=== PATIENT | female | born 1990 | race Caucasian/White ===

== ENCOUNTER 2021-08-30 11:34 | Emergency (ER) | payer BC, SELFPAY ==
[2021-08-30 11:57] VITALS: BP 167/83; PULSE 65; RESP 18; TEMP 37; O2SAT 100; BMI 25.6
== END 2021-08-30 15:30 | disposition left against medical advice (07) ==
LOC: HO.ED 15:24
PROVIDERS: Emergency Provider Emergency Medicine
DX: R11.10 Vomiting, unspecified (principal); R10.9 Unspecified abdominal pain
CPT/HCPCS: 99281; 99282

== ENCOUNTER 2021-08-31 08:26 | Inpatient (IN) | payer BC, SELFPAY ==
--- NOTE | ~2021-08-31 | CT_ITS ---
EXAMINATION: CT ABDOMEN AND PELVIS WITH CONTRAST CLINICAL INFORMATION: Abdominal pain. Hematemesis. COMPARISON: None TECHNIQUE: Multidetector volumetric images were obtained from the superior aspect of the liver through the pubic symphysis following administration 85 mL of Omnipaque 350 intravenous contrast. Sagittal and coronal reformatted images were obtained on the technologist's workstation. Oral contrast: Yes This CT examination was performed using dose optimization techniques as appropriate, variously including the following: *Automated exposure control *Adjustment of mA and/or kV according to patient size (this includes techniques or standardized protocols for targeted exams where dose is matched to indication/reason for exam; i.e. extremities or head) *Use of iterative reconstruction technique DLP: 368 mGy-cm FINDINGS: LUNG BASES: The visualized lung bases are unremarkable. LIVER, GALLBLADDER, AND BILIARY TREE: The liver is normal in size, shape, and attenuation. No focal hepatic lesion or biliary ductal dilatation is present. The gallbladder is unremarkable with no evidence of radiopaque gallstones, gallbladder wall thickening, or obvious pericholecystic inflammatory changes. PANCREAS: Unremarkable. SPLEEN: Unremarkable. ADRENAL GLANDS: Unremarkable. KIDNEYS AND URETERS: The kidneys are normal in size, shape, and attenuation. No hydronephrosis, hydroureter, or calculi seen. No perinephric stranding. BLADDER: Unremarkable. GASTROINTESTINAL TRACT: The small and large bowel are unremarkable. The appendix is unremarkable. ABDOMINAL WALL: No significant hernia is appreciated. LYMPH NODES: Normal. VASCULAR: Unremarkable. PELVIC VISCERA: Unremarkable. OSSEOUS STRUCTURES: Unremarkable. CT/CT abdomen pelvis w con IMPRESSION: Unremarkable exam. Fleischner guidelines were followed.
[2021-08-31 08:31] VITALS: BP 137/87; PULSE 84; RESP 16; TEMP 36.6; O2SAT 99; BMI 25.6
--- NOTE | 2021-08-31 09:10 | ED_ITS ---
HPI - Nausea/Vomiting/Diarrhea General Chief complaint: Nausea/Vomiting/Diarrhea Stated complaint: vomiting blood Time Seen by Provider: 08/31/21 08:42 Source: patient Mode of arrival: ambulatory Limitations: no limitations History of Present Illness HPI Narrative: Patient presents emergency department for evaluation of vomiting. She reports 1 week ago she had vomited approximately 6 times in 1 day, was unable to tolerate p.o. Since then she has been experiencing diarrhea each day, is unable to state exactly how many times she is having diarrhea. Denies any blood or mucus to be present in it. Yesterday she began vomiting again and noted some bright red blood. She has been unable to tolerate any p.o. intake reportedly for the last 24 hours. Is experiencing abdominal pain mostly localized to the umbilical region. She denies any NSAID usage, history of ulcers, consistent alcohol consumption. She does report a history of GERD, has had many endoscopies in the past but states it has been a few years since her prior ones. Not currently taking any medication for her GERD. Denies fevers, chills, known sick contacts, upper respiratory symptoms, chest pain, palpitations, shortness of breath, difficulty breathing, dysuria, urinary frequency/ urgency / hesitancy, abnormal vaginal discharge, pelvic pain, possibility of . Related Data Home Medications Medication Instructions Recorded Confirmed albuterol sulfate 90 mcg/actuation 2 puff INHALATION Q4H PRN 08/31/21 08/31/21 aerosol inhaler atorvastatin 40 mg tablet 1 tab PO DAILY 08/31/21 08/31/21 bupropion HCl 150 mg 24 hr tablet, 1 tab PO QAM 08/31/21 08/31/21 extended release etonogestrel 0.12 mg-ethinyl 1 ring VAGINAL QMONTH 08/31/21 08/31/21 estradiol 0.015 mg/24 hr vaginal ring lamotrigine 150 mg tablet 1 tab PO DAILY 08/31/21 08/31/21 lorazepam 1 mg tablet 1 tab PO DAILY PRN 08/31/21 08/31/21 Allergies Allergy/AdvReac Type Severity Reaction Status Date / Time nausea med AdvReac Unknown Uncoded 08/30/21 12:03 Review of Systems Review of Systems: Constitutional : No Weight loss, No Fever, No Chills ENT/Mouth :? No sore throat, No Rhinorrhea Eyes: No Swelling, No Redness Cardiovascular : No Chest Pain, No SOB, No Edema Respiratory : No Cough, No Sputum, No Wheezing Gastrointestinal : Positive Nausea, Positive Vomiting, positive Diarrhea, positive abdominal pain. Positive hematemesis. No Hematochezia, No Melena Genitourinary : No Dysuria, No Urinary Frequency, No Hematuria, No Urgency? Musculoskeletal : No joint pain, No Myalgias, No Joint Swelling Skin : No Skin Lesions, No rash Neuro : No Weakness, No Numbness, No Dizziness, No Headache Psych : No Anxiety/Panic, No Depression Heme/Lymph: No Bruising, No Lymphadenopathy Endocrine : No Polyuria, No Polydipsia Yes all other systems are reviewed and are negative [facility] Past Medical History Attestation statement: The following information was validated with the patient. Source: old records reviewed Medical History ADHD Anxiety Surgical History H/O wisdom tooth extraction Social History Social History Smoked in Last 30 Days: No Use of substances other than those prescribed or required for medical reasons: Yes Substance Use Type: Marijuana Advance Directives: No Advance Directives Information Provided: No Physical Exam Vital Signs: Vital Signs: Last Vital Signs Temp 98.3 F 08/31/21 16:59 Pulse 84 08/31/21 18:17 Resp 16 08/31/21 18:17 BP 106/68 08/31/21 18:17 Pulse Ox 99 08/31/21 18:17 BMI result Body Mass Index 25.6 Vital signs have been reviewed as normal and appeared to be correct. Blood pressure normal.? Heart rate normal.? Respiration rate normal. Temperature normal.? Oxygen saturation normal. Appearance: Alert.?Oriented to person, place and time. No acute distress.?Normal affect. Eyes: Pupils equal, round and reactive to light.? ENT: Pharynx normal.?? Neck: Normal inspection.? Neck supple.?? CVS: Heart sounds normal. Normal heart rate and rhythm.? Pulses normal.?? Respiratory: No respiratory distress.? Lung sounds clear to auscultation bilaterally?? Abdomen: Soft and non-tender throughout. Normoactive bowel sounds. No pulsatile mass.? negative rebound tenderness, negative psoas, negative obturator, negative Rovsing Skin: Skin warm and dry.? Normal skin color. Extremities: No lower extremity edema.? Neuro: Moves all extremities spontaneously. Sensation intact bilaterally. CN II- XII intact. No focal neuro deficits. Ambulates with normal steady gait. Course Course Course Narrative: patient is a 31-year-old female with a past medical history of GERD presenting to the emergency department for evaluation of vomiting, she is concerned due to the presence of bright red blood. During my exam she had an episode of a small amount of emesis notable presence of bright red blood, and dark red. abdominal exam is benign. She is well appearing, hemodynamically stable. Will obtain CBC, CMP/lipase, urinalysis, urine , and CT of the abdomen/ pelvis. patient received 1 L IV fluid, Toradol for abdominal pain, Zofran 4 mg IV. She reports a allergy to a nausea medicine is unaware which medication but states she is able to take Zofran. Reevaluation(s) Reevaluation #1: Patient continues to have active vomiting, ordered Benadryl 25 mg IV. Time: 09:50 Reevaluation #2: COVID- 19 and influenza testing is negative. CBC reveals a mild leukocytosis 13.8, CMP unremarkable. Lipase is mildly elevated 107. urinalysis is without sign of infection or hematuria. CT pending at this time Time: 10:41 Reevaluation #3: CT of the abdomen and pelvis without any acute findings. Remains actively vomiting, no p.o. tolerance, will give benadryl and phenergan Time: 14:25 Additional Reevaluation(s): 1630: unable to tolerate p.o. fluid or solid foods, emesis sent for occult testing. will trial Haldol, as patient does smoke marijuana, this may be for emesis secondary to cannabis, call placed to hospitalist Dr. Childs for admission to medicine service with intractable vomiting, discussed this with patient, and patient agreeable to plan of care for hospital admission. 1730: Gastric emesis occult positive MDM - Nausea/Vomiting/Diarrhea Medical Records Attestation: I reviewed the patient's medical records. Lab Data Attestation: I reviewed the patient's lab results. Result diagrams: 08/31/21 09:22 08/31/21 09:22 Labs: Lab Results 08/31/21 08/31/21 08/31/21 Range/Units 09:17 09:17 09:22 WBC 13.8 H (4.8-10.8) X10*3/uL RBC 4.65 (4.20-5.50) X10*6/uL Hgb 14.5 (12.0-16.0) g/dl Hct 40.6 (37.0-47.0) % MCV 87.3 (80.0-98.0) fL MCH 31.2 (27.0-33.0) pg MCHC 35.7 H (31.0-35.0) g/dl RDW 13.2 (11.0-16.0) % Plt Count 341 (160-400) X10*3/uL MPV 8.8 L (9.4-12.3) fL Immature Gran % (Auto) 0.4 (0.0-0.4) % Neut % (Auto) 70.7 (45-73) % Lymph % (Auto) 20.5 (20-40) % [place] % (Auto) 7.6 (2-11) % Eos % (Auto) 0.6 (0-4) % Baso % (Auto) 0.2 (0-2) % Lymph # (Auto) 2.8 (1.2-4.9) X10*3/uL [place] # (Auto) 1.1 (0.1-1.2) X10*3/uL Eos # (Auto) 0.1 (0.0-0.4) X10*3/uL Baso # (Auto) 0.0 (0.0-0.2) X10*3/uL Abs Immat Gran (auto) 0.05 H (0.00-0.03) X10*3/uL Absolute Neuts (auto) 9.8 H (2.0-8.3) x10*3/uL Absolute Nucleated RBC 0.000 (0.0-0.012) X10*3/uL Nucleated RBC % (auto) 0.0 (0.0-0.2) /100WBC Sodium (135-145) mmol/L Potassium (3.3-5.1) mmol/L Chloride (96-108) mmol/L Carbon Dioxide (22-29) mmol/L Anion Gap (12-20) BUN (9-16) mg/dL Creatinine (0.5-1.4) mg/dL Estim Creat Clear Calc Estimated GFR Random Glucose (60-115) mg/dL Calcium (8.4-10.2) mg/dL Total Bilirubin (0.0-1.0) mg/dL AST (5-31) U/L ALT (0-31) U/L Alkaline Phosphatase (39-117) U/L Total Protein (6.5-8.0) g/dL Albumin (3.5-5.0) g/dL Lipase (8-78) U/L Beta HCG, Quant mIU/mL Urine Color Urine Appearance Urine pH (5.0-8.0) Ur Specific [place] (1.005-1.025) Urine Protein (NEG-TRACE) MG/DL Urine Glucose (UA) (NEG) MG/DL Urine Ketones (NEG) MG/DL Urine Blood (NEG) Urine Nitrite (NEG) Ur Leukocyte Esterase (NEG) Urine RBC (0) /HPF Urine WBC (0-4) /HPF Ur Squamous Epith Cells /LPF Urine Bacteria /LPF Urine Mucus /LPF Urine Test (NEGATIVE) Gastric Occult Blood (NEG) COVID-19 (ROSCOE) Negative (Negative) COVID-19 Clin Com See Note Influenza Type A (CAROLIN) Negative (Negative) Influenza Type B (CAROLIN) Negative (Negative) Influenza A & B Note See Note 08/31/21 08/31/21 08/31/21 Range/Units 09:22 11:21 11:21 WBC (4.8-10.8) X10*3/uL RBC (4.20-5.50) X10*6/uL Hgb (12.0-16.0) g/dl Hct (37.0-47.0) % MCV (80.0-98.0) fL MCH (27.0-33.0) pg MCHC (31.0-35.0) g/dl RDW (11.0-16.0) % Plt Count (160-400) X10*3/uL MPV (9.4-12.3) fL Immature Gran % (Auto) (0.0-0.4) % Neut % (Auto) (45-73) % Lymph % (Auto) (20-40) % [place] % (Auto) (2-11) % Eos % (Auto) (0-4) % Baso % (Auto) (0-2) % Lymph # (Auto) (1.2-4.9) X10*3/uL [place] # (Auto) (0.1-1.2) X10*3/uL Eos # (Auto) (0.0-0.4) X10*3/uL Baso # (Auto) (0.0-0.2) X10*3/uL Abs Immat Gran (auto) (0.00-0.03) X10*3/uL Absolute Neuts (auto) (2.0-8.3) x10*3/uL Absolute Nucleated RBC (0.0-0.012) X10*3/uL Nucleated RBC % (auto) (0.0-0.2) /100WBC Sodium 136 (135-145) mmol/L Potassium 4.2 (3.3-5.1) mmol/L Chloride 106 (96-108) mmol/L Carbon Dioxide 19 L (22-29) mmol/L Anion Gap 15 (12-20) BUN 14 (9-16) mg/dL Creatinine 0.76 (0.5-1.4) mg/dL Estim Creat Clear Calc 93.8 Estimated GFR > 60 Random Glucose 114 (60-115) mg/dL Calcium 9.8 (8.4-10.2) mg/dL Total Bilirubin 0.7 (0.0-1.0) mg/dL AST 25 (5-31) U/L ALT 24 (0-31) U/L Alkaline Phosphatase 74 (39-117) U/L Total Protein 7.7 (6.5-8.0) g/dL Albumin 4.4 (3.5-5.0) g/dL Lipase 107 H (8-78) U/L Beta HCG, Quant < 2 mIU/mL Urine Color YELLOW Urine Appearance HAZY Urine pH 6.0 (5.0-8.0) Ur Specific [place] 1.025 (1.005-1.025) Urine Protein 1+ H (NEG-TRACE) MG/DL Urine Glucose (UA) NEG (NEG) MG/DL Urine Ketones 15 (NEG) MG/DL Urine Blood TRACE (NEG) Urine Nitrite NEG (NEG) Ur Leukocyte Esterase NEG (NEG) Urine RBC 1-4 (0) /HPF Urine WBC 1-4 (0-4) /HPF Ur Squamous Epith Cells 2+ /LPF Urine Bacteria 1+ /LPF Urine Mucus 3+ /LPF Urine Test NEGATIVE (NEGATIVE) Gastric Occult Blood (NEG) COVID-19 (ROSCOE) (Negative) COVID-19 Clin Com Influenza Type A (CAROLIN) (Negative) Influenza Type B (CAROLIN) (Negative) Influenza A & B Note 08/31/21 Range/Units 17:02 WBC (4.8-10.8) X10*3/uL RBC (4.20-5.50) X10*6/uL Hgb (12.0-16.0) g/dl Hct (37.0-47.0) % MCV (80.0-98.0) fL MCH (27.0-33.0) pg MCHC (31.0-35.0) g/dl RDW (11.0-16.0) % Plt Count (160-400) X10*3/uL MPV (9.4-12.3) fL Immature Gran % (Auto) (0.0-0.4) % Neut % (Auto) (45-73) % Lymph % (Auto) (20-40) % [place] % (Auto) (2-11) % Eos % (Auto) (0-4) % Baso % (Auto) (0-2) % Lymph # (Auto) (1.2-4.9) X10*3/uL [place] # (Auto) (0.1-1.2) X10*3/uL Eos # (Auto) (0.0-0.4) X10*3/uL Baso # (Auto) (0.0-0.2) X10*3/uL Abs Immat Gran (auto) (0.00-0.03) X10*3/uL Absolute Neuts (auto) (2.0-8.3) x10*3/uL Absolute Nucleated RBC (0.0-0.012) X10*3/uL Nucleated RBC % (auto) (0.0-0.2) /100WBC Sodium (135-145) mmol/L Potassium (3.3-5.1) mmol/L Chloride (96-108) mmol/L Carbon Dioxide (22-29) mmol/L Anion Gap (12-20) BUN (9-16) mg/dL Creatinine (0.5-1.4) mg/dL Estim Creat Clear Calc Estimated GFR Random Glucose (60-115) mg/dL Calcium (8.4-10.2) mg/dL Total Bilirubin (0.0-1.0) mg/dL AST (5-31) U/L ALT (0-31) U/L Alkaline Phosphatase (39-117) U/L Total Protein (6.5-8.0) g/dL Albumin (3.5-5.0) g/dL Lipase (8-78) U/L Beta HCG, Quant mIU/mL Urine Color Urine Appearance Urine pH (5.0-8.0) Ur Specific [place] (1.005-1.025) Urine Protein (NEG-TRACE) MG/DL Urine Glucose (UA) (NEG) MG/DL Urine Ketones (NEG) MG/DL Urine Blood (NEG) Urine Nitrite (NEG) Ur Leukocyte Esterase (NEG) Urine RBC (0) /HPF Urine WBC (0-4) /HPF Ur Squamous Epith Cells /LPF Urine Bacteria /LPF Urine Mucus /LPF Urine Test (NEGATIVE) Gastric Occult Blood POSITIVE H (NEG) COVID-19 (ROSCOE) (Negative) COVID-19 Clin Com Influenza Type A (CAROLIN) (Negative) Influenza Type B (CAROLIN) (Negative) Influenza A & B Note Discharge Plan Discharge Clinical Impression: Intractable vomiting Patient Disposition: Admitted As Inpatient
[2021-08-31] MEDS: 0.9 % Sodium Chloride 1,000 ML 999 ML IV ×2 (09:25→16:56)
[2021-08-31] MEDS: Ketorolac Tromethamine 30 MG/ML VIAL IVPUSH (09:26)
[2021-08-31] MEDS: ondansetron HCL 4 MG/2 ML VIAL IVPUSH (09:26)
[2021-08-31 09:32] LABS: MANUAL DIFF FLAG NO
[2021-08-31 09:35] LABS: Basophils Percent Auto 0.2 % (0-2); Eosinophils Absolute Auto 0.1 X10*3/uL (0.0-0.4); Eosinophils Percent Auto 0.6 % (0-4); Hematocrit 40.6 % (37.0-47.0); Hemoglobin 14.5 g/dl (12.0-16.0); Imm Gran Abs Auto 0.05 X10*3/uL (0.00-0.03); Imm Gran Pct Auto 0.4 % (0.0-0.4); Lymphocytes Absolute Auto 2.8 X10*3/uL (1.2-4.9); Lymphocytes Percent Auto 20.5 % (20-40); Mean Corpuscular HGB Conc 35.7 g/dl (31.0-35.0); Mean Corpuscular Hemoglobin 31.2 pg (27.0-33.0); Mean Corpuscular Volume 87.3 fL (80.0-98.0); Mean Platelet Volume 8.8 fL (9.4-12.3); Monocytes Absolute Auto 1.1 X10*3/uL (0.1-1.2); Monocytes Percent Auto 7.6 % (2-11); Neutrophils Absolute Auto 9.8 x10*3/uL (2.0-8.3); Neutrophils Percent Auto 70.7 % (45-73); Platelet Count 341 X10*3/uL (160-400); Red Blood Count 4.65 X10*6/uL (4.20-5.50); Red Cell Distribution Width 13.2 % (11.0-16.0); White Blood Count 13.8 X10*3/uL (4.8-10.8)
[2021-08-31 09:53] LABS: COVID-19 Test Negative (Negative); IDNOW Serial# 08D9AD1C
[2021-08-31 10:03] LABS: Alanine Aminotransferase 24 U/L (0-31); Albumin Level 4.4 g/dL (3.5-5.0); Alkaline Phosphatase 74 U/L (39-117); Anion Gap 15 (12-20); Aspartate Amino Transferase 25 U/L (5-31); Bilirubin Total 0.7 mg/dL (0.0-1.0); Blood Urea Nitrogen 14 mg/dL (9-16); Calcium 9.8 mg/dL (8.4-10.2); Carbon Dioxide 19 mmol/L (22-29); Chloride 106 mmol/L (96-108); Creatinine Clr Calc Pharmacy 93.8; Estimated Glomerular Filt Rate > 60; Glucose Random 114 mg/dL (60-115); Lipase 107 U/L (8-78); Potassium 4.2 mmol/L (3.3-5.1); Sodium 136 mmol/L (135-145); Total Protein 7.7 g/dL (6.5-8.0)
[2021-08-31] MEDS: diphenhydrAMINE HCL 50 MG/ML VIAL 25 MG IVPUSH ×2 (10:05→14:40)
[2021-08-31 10:07] LABS: Influenza A Negative (Negative); Influenza B2 Negative (Negative)
[2021-08-31 11:07] LABS: HCG Quantitative < 2 mIU/mL
[2021-08-31 11:31] LABS: Appearance Urine HAZY; Color Urine YELLOW; Glucose Urine UA NEG (NEG); Leukocyte Esterase Urine NEG (NEG); Nitrite Urine NEG (NEG); Specific Gravity - Urine 1.025 (1.005-1.025); UACC Culture Trigger NO; Urine Blood TRACE (NEG); Urine Ketones 15 MG/DL (NEG); Urine Protein 1+ MG/DL (NEG-TRACE)
[2021-08-31 11:34] LABS: UPreg QC Valid YES; Urine Pregnancy NEGATIVE (NEGATIVE)
[2021-08-31 11:39] LABS: Bacteria Urine 1+ /LPF; Mucus Urine 3+ /LPF; Squamous Epithelial Cell Urine 2+ /LPF
[2021-08-31] MEDS: iohexoL 350 MG/ML 100 ML INFUS..BTL IV (12:35)
[2021-08-31 13:53] VITALS: RESP 16
[2021-08-31 14:38] VITALS: BP 150/91; PULSE 69; RESP 20; O2SAT 99
[2021-08-31] MEDS: Haloperidol Lactate 5 MG/ML VIAL 2 MG IM (16:57)
[2021-08-31] MEDS: Pantoprazole Sodium 40 MG/10 ML VIAL IVPUSH (16:57)
[2021-08-31 16:59] VITALS: BP 145/89; PULSE 56; RESP 14; TEMP 36.8; O2SAT 100
[2021-08-31 17:19] LABS: GASOB Int Neg Ctl Valid YES; GASOB Int Pos Ctl Valid YES; Occult Blood Gastric POSITIVE (NEG)
--- NOTE | 2021-08-31 17:30 | P.HPHOSP_ITS ---
History of Present Illness Date of Service: 08/31/21 Chief Complaint: intractable nausea and vomiting 31 year female with HLD, who has chronic nonspecific abdominal issues, she smokes marijuana and is presenting with intractable nausea and vomiting for nearly a week, vomiting up to 7 times a day and hardly able to keep any food or liquid down.She has also some has some diarrhea, without abdominal pain, or bl ood in the stool, no fever. Labs shows mild increase in WBC to 13. Electrolytes are normal, lipase is high likely from n/v. CT of abdomen is normal. Negative test. Review of Systems Review of Systems: Gen: no fever Resp: no sob, no cough CV: no chest, no MATA, no leg edema GI:+ n/v, no abd pain Neuro: No confusion Yes all other systems are reviewed and are negative [facility] Medical History ADHD Anxiety Pertinent family history: she thinks diabetes Surgical History H/O wisdom tooth extraction Social History Smoked in Last 30 Days: No Use of substances other than those prescribed or required for medical reasons: Yes Substance Use Type: Marijuana Advance Directives: No Advance Directives Information Provided: No service: No Current occupational status: employed Meds Allergies Allergy/AdvReac Type Severity Reaction Status Date / Time nausea med AdvReac Unknown Uncoded 08/30/21 12:03 Active Medications: Current Medications Sodium Chloride (Ns) 1,000 mls @ 999 mls/hr IV .Q1H1M LOLI Stop: 08/31/21 17:45 Last Admin: 08/31/21 16:56 Dose: 999 mls/hr Documented by: Pharmacy Consult (Consult Rx Perform Med Rec) 1 each MISCELLANE ONCE PRN PRN Reason: Consult order Home Medications Medication Instructions Recorded Confirmed Last Taken Type albuterol sulfate 90 mcg/actuation 2 puff INHALATION Q4H PRN 08/31/21 08/31/21 Unknown History aerosol inhaler atorvastatin 40 mg tablet 1 tab PO DAILY 08/31/21 08/31/21 08/27/21 History bupropion HCl 150 mg 24 hr tablet, 1 tab PO QAM 08/31/21 08/31/21 08/27/21 History extended release etonogestrel 0.12 mg-ethinyl 1 ring VAGINAL QMONTH 08/31/21 08/31/21 08/21/21 History estradiol 0.015 mg/24 hr vaginal ring lamotrigine 150 mg tablet 1 tab PO DAILY 08/31/21 08/31/21 08/27/21 History lorazepam 1 mg tablet 1 tab PO DAILY PRN 08/31/21 08/31/21 Unknown History Physical Exam Vital Signs and Narrative: Vital Signs: Last Vital Signs Temp 98.3 F 08/31/21 16:59 Pulse 56 08/31/21 16:59 Resp 14 08/31/21 16:59 BP 145/89 H 08/31/21 16:59 Pulse Ox 100 08/31/21 16:59 BMI result Body Mass Index 25.6 Const: Other: Constitutional: Alert, in no distress Mental Status: Oriented to person, place and time. Eyes: Pupils are equal, round and reactive to light. Ear, Nose and Throat: Oropharynx clear, mucous membranes moist. Respiratory: Clear to auscultation. No wheezing, rales or rhonchi. Cardiovascular: S1 S2 regular. No murmurs, rubs or gallops. Gastrointestinal: Abdomen soft, non-tender, non-distended. Normal bowel sounds.? Neurologic: Cranial nerves II-XII grossly intact. No focal neurological deficits. Moves all extremities spontaneously.? Skin: No rashes or lesions.? Musculoskeletal: No cyanosis or clubbing. Psychiatric: Normal mood and affect? Results Labs CBC and Chem 7: 09/01/21 10:02 08/31/21 09:22 Labs: Laboratory Results - last 24 hr 08/31/21 08/31/21 08/31/21 09:17 09:17 09:22 MCV 87.3 MCH 31.2 MCHC 35.7 H RDW 13.2 Plt Count 341 MPV 8.8 L Immature Gran % (Auto) 0.4 Neut % (Auto) 70.7 Lymph % (Auto) 20.5 [place] % (Auto) 7.6 Eos % (Auto) 0.6 Baso % (Auto) 0.2 Lymph # (Auto) 2.8 [place] # (Auto) 1.1 Eos # (Auto) 0.1 Baso # (Auto) 0.0 Abs Immat Gran (auto) 0.05 H Absolute Neuts (auto) 9.8 H Absolute Nucleated RBC 0.000 Nucleated RBC % (auto) 0.0 Anion Gap Estim Creat Clear Calc Estimated GFR Random Glucose Calcium Total Bilirubin AST ALT Alkaline Phosphatase Total Protein Albumin Lipase Beta HCG, Quant Urine Color Urine Appearance Urine pH Ur Specific [place] Urine Protein Urine Glucose (UA) Urine Ketones Urine Blood Urine Nitrite Ur Leukocyte Esterase Urine RBC Urine WBC Ur Squamous Epith Cells Urine Bacteria Urine Mucus Urine Test Gastric Occult Blood COVID-19 ([facility]COE) Negative COVID-19 Clin Com See Note Influenza Type A (CAROLIN) Negative Influenza Type B (CAROLIN) Negative Influenza A & B Note See Note 08/31/21 08/31/21 08/31/21 09:22 11:21 11:21 MCV MCH MCHC RDW Plt Count MPV Immature Gran % (Auto) Neut % (Auto) Lymph % (Auto) [place] % (Auto) Eos % (Auto) Baso % (Auto) Lymph # (Auto) [place] # (Auto) Eos # (Auto) Baso # (Auto) Abs Immat Gran (auto) Absolute Neuts (auto) Absolute Nucleated RBC Nucleated RBC % (auto) Anion Gap 15 Estim Creat Clear Calc 93.8 Estimated GFR > 60 Random Glucose 114 Calcium 9.8 Total Bilirubin 0.7 AST 25 ALT 24 Alkaline Phosphatase 74 Total Protein 7.7 Albumin 4.4 Lipase 107 H Beta HCG, Quant < 2 Urine Color YELLOW Urine Appearance HAZY Urine pH 6.0 Ur Specific [place] 1.025 Urine Protein 1+ H Urine Glucose (UA) NEG Urine Ketones 15 Urine Blood TRACE Urine Nitrite NEG Ur Leukocyte Esterase NEG Urine RBC 1-4 Urine WBC 1-4 Ur Squamous Epith Cells 2+ Urine Bacteria 1+ Urine Mucus 3+ Urine Test NEGATIVE Gastric Occult Blood COVID-19 (ROSCOE) COVID-19 Clin Com Influenza Type A (CAROLIN) Influenza Type B (CAROLIN) Influenza A & B Note 08/31/21 17:02 MCV MCH MCHC RDW Plt Count MPV Immature Gran % (Auto) Neut % (Auto) Lymph % (Auto) [place] % (Auto) Eos % (Auto) Baso % (Auto) Lymph # (Auto) [place] # (Auto) Eos # (Auto) Baso # (Auto) Abs Immat Gran (auto) Absolute Neuts (auto) Absolute Nucleated RBC Nucleated RBC % (auto) Anion Gap Estim Creat Clear Calc Estimated GFR Random Glucose Calcium Total Bilirubin AST ALT Alkaline Phosphatase Total Protein Albumin Lipase Beta HCG, Quant Urine Color Urine Appearance Urine pH Ur Specific [place] Urine Protein Urine Glucose (UA) Urine Ketones Urine Blood Urine Nitrite Ur Leukocyte Esterase Urine RBC Urine WBC Ur Squamous Epith Cells Urine Bacteria Urine Mucus Urine Test Gastric Occult Blood POSITIVE H COVID-19 (ROSCOE) COVID-19 Clin Com Influenza Type A (CAROLIN) Influenza Type B (CAROLIN) Influenza A & B Note Imaging Radiologist's Impressions: Impressions Abdomen/Pelvis CT 08/31/21 12:35 IMPRESSION: Unremarkable exam. Fleischner guidelines were followed. 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 Quality Stroke Does the patient have a stroke diagnosis?: No VTE Prior VTE?: No VTE Risk Level:: Medical - low VTE Device Contraindication: Treatment Not Indicated VTE Drug Contraindication: Treatment Not Indicated
--- NOTE | 2021-08-31 17:35 | PHA.MEDREC ---
Pharmacy Consult ? Medication Reconciliation Pharmacy has completed the medication reconciliation.
[2021-08-31] MEDS: Dextrose 5 % and 0.45 % NaCl 1,000 ML 100 ML IVCONT (18:15)
[2021-08-31 18:17] VITALS: BP 106/68; PULSE 84; RESP 16; O2SAT 99
--- NOTE | 2021-08-31 20:24 | PC.NURSE ---
pt ambulated to BR independently, no /o dizziness
--- NOTE | 2021-08-31 20:57 | PC.NURSE ---
pt given cherie jakob and saltines
--- NOTE | 2021-08-31 21:10 | MHC.CM.PN ---
MAGNO 08/31. Declines HCP. PCP at [facility], cannot remember name. Vax x2/Moderna. Lives with S.O. No DME/services. D/C plan: Home without services. Pt states will drive herself home. CM to follow for d/c needs.
[2021-09-01 00:02] VITALS: BP 102/64; PULSE 54; RESP 19; O2SAT 98
--- NOTE | 2021-09-01 02:19 | PC.NURSE ---
pt asking to go home, states she feels better, able to hold down PO fluids and saltines and wants to go. MD Royal made aware. pt c/o of pain at IV site. noted to be infiltrated, IV d/c'd
--- NOTE | 2021-09-01 02:23 | PC.NURSE ---
MD requested this RN to ask pt to stay until morning, pt reassured, told that the MD would like to observe until am... pt agreeable to stay until she is deemed safe for discharge
--- NOTE | 2021-09-01 03:04 | PC.NURSE ---
pt ambulated to BR to void independently. no c.o dizziness
[2021-09-01 03:54] VITALS: BP 101/58; PULSE 55; RESP 19; O2SAT 98
[2021-09-01] MEDS: Dextrose 5 % and 0.45 % NaCl 1,000 ML 100 ML IVCONT ×3 (06:01→19:02)
--- NOTE | 2021-09-01 07:35 | PC.NURSE ---
Pt requesting food, tolerated a small amount however now feeling nauseous, no vomiting at this time. Skin pink war and dry. D5 1/2 NS infusing per order. Ambulatory with steady gait. Speech clear, full sentences. NSR on montior
[2021-09-01] MEDS: ondansetron HCL 4 MG/2 ML VIAL IVPUSH (07:42)
[2021-09-01] MEDS: Famotidine/PF 20 MG/2 ML VIAL IVPUSH ×2 (08:24→19:53)
[2021-09-01] MEDS: LORazepam 2 MG/ML VIAL 0.5 MG IVPUSH (08:31)
--- NOTE | 2021-09-01 08:31 | PC.NURSE ---
Pt given PRN zofran but continues to vomit, no blood noted. Pt seen by hospitalist and meds ordered and being given at this time.
--- NOTE | 2021-09-01 09:49 | PC.NURSE ---
Pt improved s/p medication interventions but occasional dry heaving. Will hold off on PO AM meds at this time, pt states taking AM meds on Sunday it what initiated vomiting.
[2021-09-01 10:28] LABS: Hematocrit 38.1 % (37.0-47.0); Hemoglobin 13.6 g/dl (12.0-16.0); Mean Corpuscular HGB Conc 35.7 g/dl (31.0-35.0); Mean Corpuscular Hemoglobin 31.7 pg (27.0-33.0); Mean Corpuscular Volume 88.8 fL (80.0-98.0); Mean Platelet Volume 8.9 fL (9.4-12.3); Platelet Count 285 X10*3/uL (160-400); Red Blood Count 4.29 X10*6/uL (4.20-5.50); Red Cell Distribution Width 13.1 % (11.0-16.0); White Blood Count 10.8 X10*3/uL (4.8-10.8)
--- NOTE | 2021-09-01 11:22 | P.PNIM_ITS ---
Subjective Subjective Date of Service: 09/01/21 Interval History: follow-up on intractable nausea vomiting. She did well overnight but then this morning she ate egg and started having nausea and throwing up yet again. Review of Systems Nausea vomiting, no abdominal pain. Physical Exam Vital Signs: Vital Signs: Last Vital Signs Temp 98.3 F 08/31/21 16:59 Pulse 55 09/01/21 03:54 Resp 19 09/01/21 03:54 BP 101/58 L 09/01/21 03:54 Pulse Ox 98 09/01/21 03:54 BMI result Body Mass Index 25.6 Const: Other: General: AO X 3, no acute distress Resp: CTA bilateral CVS: S1,S2,RRR GI: +BS, NT, no distention Skin: No rash Neuro: motor grossly intact Psych: appropriate affect Objective Data Active Medications Acetaminophen (Acetaminophen 325 Mg Tablet) 650 mg PO Q6H PRN PRN Reason: Pain, Mild (Pain Scale 1-3) Albuterol Sulfate (Albuterol Sulfate 90 Mcg 8 Gm Inhaler) 2 puff INHALE Q4H PRN PRN Reason: wheezing Atorvastatin Calcium (Atorvastatin Calcium 40 Mg Tablet) 40 mg PO DAILY [facility] Bupropion HCl (Bupropion Hcl Xl 150 Mg Tab.Er.24h) 150 mg PO DAILY [facility] Famotidine (Famotidine/Pf 20 Mg/2 Ml Vial) 20 mg IVPUSH BID [facility] Last Admin: 09/01/21 08:24 Dose: 20 mg Documented by: PHUONG Dextrose/Sodium Chloride (D51/2ns) 1,000 mls @ 100 mls/hr IVCONT .Q10H [facility] Last Admin: 09/01/21 06:01 Dose: 100 mls/hr Documented by: BHARTI Lamotrigine (Lamotrigine 100 Mg Tablet) 150 mg PO DAILY [facility] Lorazepam (Lorazepam 1 Mg Tablet) 1 mg PO DAILY PRN PRN Reason: Anxiety Melatonin (Melatonin 3 Mg Tablet) 6 mg PO BEDTIME PRN PRN Reason: Insomnia Ondansetron HCl (Ondansetron Hcl 4 Mg/2 Ml Vial) 4 mg IVPUSH Q8H PRN PRN Reason: Nausea and Vomiting Last Admin: 09/01/21 07:42 Dose: 4 mg Documented by: PHUONG Pharmacy Consult (Consult Rx Perform Med Rec) 1 each MISCELLANE ONCE PRN PRN Reason: Consult order Sodium Chloride (0.9 % Sodium Chloride Flush 3 Ml Syringe) 3 ml IVFLUSH QSHIFT [facility] Last Admin: 09/01/21 07:35 Dose: Not Given Documented by: PHUONG Non-Admin Reason: IV Running Labs CBC & Chem 7: 09/01/21 10:02 08/31/21 09:22 Labs: Laboratory Results - last 24 hr 08/31/21 08/31/21 08/31/21 11:21 11:21 17:02 MCV MCH MCHC RDW Plt Count MPV Absolute Nucleated RBC Nucleated RBC % (auto) Urine Color YELLOW Urine Appearance HAZY Urine pH 6.0 Ur Specific [place] 1.025 Urine Protein 1+ H Urine Glucose (UA) NEG Urine Ketones 15 Urine Blood TRACE Urine Nitrite NEG Ur Leukocyte Esterase NEG Urine RBC 1-4 Urine WBC 1-4 Ur Squamous Epith Cells 2+ Urine Bacteria 1+ Urine Mucus 3+ Urine Test NEGATIVE Gastric Occult Blood POSITIVE H 09/01/21 10:02 MCV 88.8 MCH 31.7 MCHC 35.7 H RDW 13.1 Plt Count 285 MPV 8.9 L Absolute Nucleated RBC 0.000 Nucleated RBC % (auto) 0.0 Urine Color Urine Appearance Urine pH Ur Specific [place] Urine Protein Urine Glucose (UA) Urine Ketones Urine Blood Urine Nitrite Ur Leukocyte Esterase Urine RBC Urine WBC Ur Squamous Epith Cells Urine Bacteria Urine Mucus Urine Test Gastric Occult Blood Assessment and Plan (1) Intractable vomiting: Status: Acute Plan 31 year old female with anxiety, ADHD here with intractable nausea and vomitting, unremarkable CT--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 Advance diet as tolerated, if doing better this afternoon will be discharged home. Quality Stroke Does the patient have a stroke diagnosis?: No VTE Prior VTE?: No VTE Risk Level:: Medical - low VTE Device Contraindication: Treatment Not Indicated VTE Drug Contraindication: Treatment Not Indicated
[2021-09-01 11:34] VITALS: BP 143/79; PULSE 52; RESP 13; TEMP 36.8; O2SAT 99
[2021-09-01] MEDS: Atorvastatin Calcium 40 MG TABLET PO (11:51)
[2021-09-01] MEDS: buPROPion HCl XL 150 MG TAB.ER.24H PO (11:51)
[2021-09-01] MEDS: lamoTRIgine 100 MG TABLET 150 MG PO (11:52)
--- NOTE | 2021-09-01 11:53 | PC.NURSE ---
report obtained from emmanuel- patient a&ox3, vss, awake overnight monitor intact, sinus celena 50-60s, pt denies pain at this time, took po medications as ordered, ivf running per order, will continue to monitor.
[2021-09-01 18:07] VITALS: BP 107/82; PULSE 95; RESP 16; TEMP 36.7; O2SAT 99
[2021-09-02 00:09] VITALS: BP 109/74; PULSE 87; RESP 14; TEMP 36.8; O2SAT 98
[2021-09-02] MEDS: Dextrose 5 % and 0.45 % NaCl 1,000 ML 100 ML IVCONT (06:05)
--- NOTE | 2021-09-02 06:56 | PC.NURSE ---
Patient resting comfortably overnight with no complaints. Will continue to monitor.
--- NOTE | 2021-09-02 07:55 | PM.DS ---
DS: Providers Provider Date of Service: 09/02/21 Date of admission: 08/31/21 17:40 Primary care physician: Unknown Physician DS: Diagnosis Discharge Diagnosis (1) Intractable vomiting: Status: Acute DS: Summary Hospital Course Hospital Course: 31 year female with HLD, who has chronic nonspecific abdominal issues, she smokes marijuana and is presenting with intractable nausea and vomiting for nearly a week, vomiting up to 7 times a day and hardly able to keep any food or liquid down.She has also some has some diarrhea, without abdominal pain, or blood in the stool, no fever. Labs shows mild increase in WBC to 13. Electrolytes are normal, lipase is high likely from n/v. CT of abdomen is normal. Negative test. Hospital course: Patiene was observed and managed conservatively with hydration, antiemetics and improved by second day of hospitalization. Her diet was advanced and tolerating now. Advised to avoid marijuana Time Spent with Patient Time attestation: Total time spent providing and/or coordinating discharge services: Discharge coordination time: Greater than 30 minutes Quality: Safe Use of Opioids Does Pt have an Active Cancer Diagnosis on the Problem List?: No Quality: Stroke Does the patient have a stroke diagnosis?: No Physical Exam Vital Signs: Vital Signs: Last Vital Signs Temp 98.3 F 09/02/21 00:09 Pulse 87 09/02/21 00:09 Resp 14 09/02/21 00:09 BP 109/74 09/02/21 00:09 Pulse Ox 98 09/02/21 00:09 BMI result Body Mass Index 25.6 DS: Data Data Completed and Pending Labs on day of discharge: Laboratory Results - last 24 hr 09/01/21 10:02 WBC 10.8 RBC 4.29 Hgb 13.6 Hct 38.1 MCV 88.8 MCH 31.7 MCHC 35.7 H RDW 13.1 Plt Count 285 MPV 8.9 L Absolute Nucleated RBC 0.000 Nucleated RBC % (auto) 0.0 Discharge Plan Discharge Anticipated Discharge Date/Time: 09/02/21 07:45 Patient Disposition: Home, Self-Care Discharge Diagnosis: Cyclical Vomiting Referrals: Physician,Unknown J [Primary Care Provider] - 1 Week Discharge Medications: Continued atorvastatin 40 mg tablet 1 tab PO DAILY 0RF lamotrigine 150 mg tablet 1 tab PO DAILY 0RF lorazepam 1 mg tablet 1 tab PO DAILY PRN (Reason: Anxiety) 0RF albuterol sulfate 90 mcg/actuation HFA aerosol inhaler 2 puff inhalation Q4H PRN (Reason: wheezing) 0RF etonogestrel-ethinyl estradiol 0.12-0.015 mg/24 hr ring 1 ring vaginal QMONTH 0RF bupropion HCl 150 mg tablet extended release 24 hr 1 tab PO QAM 0RF Discharge Orders: Discharge Order (Routine); Ordered 09/02/21 Ordered By: Marky Hernández Diet: advance to usual diet Activity on Discharge: As tolerated Stand Alone Forms: Patient Portal Discharge page, Work/School Release Care Plan Goals: prevent rehospitalization Health Concerns: Cyclical vomitting syndrome Plan of Treatment: Drink plenty of fluid, avoid marijuana Assessment: as above
== END 2021-09-02 09:05 | disposition home or self-care (01) | DRG 249 ==
LOC: HO.ED 17:03 → HO.EDOVER 17:54 → HO.S3 09-01 19:12 → HO.EDOVER 09-01 19:16 → HO.ICU 09-02 07:26 → HO.EDOVER 09-02 07:53
PROVIDERS: Nurse Practitioner Family; Admitting Provider Internal Medicine; Emergency Provider Emergency Medicine; Visit Provider Internal Medicine
DX: R11.2 Nausea with vomiting, unspecified (principal); E78.5 Hyperlipidemia, unspecified; F12.99 Cannabis use, unspecified with unspecified cannabis-induced disorder; F90.9 Attention-deficit hyperactivity disorder, unspecified type; K21.9 Gastro-esophageal reflux disease without esophagitis; F41.9 Anxiety disorder, unspecified; Z20.822 Contact with and (suspected) exposure to COVID-19; Z79.3 Long term (current) use of hormonal contraceptives; Z79.899 Other long term (current) drug therapy
CPT/HCPCS: 36415; 74177; 80053; 81001; 81025; 82271; 83690; 84702; 85025; 85027; 87502; 87635; 96361; 96372; 96374; 96375; 96376; 99285; J1200; J1885; J2060; J2405; J2550; Q9967